=== PATIENT | female | born 1990 | race African-American/Black ===

== ENCOUNTER 2016-06-24 05:10 | Emergency (ER) | payer BC ==
[~2016-06-24] VITALS: Ht 160 cm; Wt 48.0 kg
[~2016-06-24 05:10] MED LIST: LEXA5SOL PO; PROP10TA6 PO; RANI150T PO; VIST25CA PO
[2016-06-24 05:15] VITALS: BP 117/83; PULSE 88; RESP 18; TEMP 98; O2SAT 99
--- NOTE | 2016-06-24 05:40 | PD ---
HPI Chief Complaint: Anxiety Time Seen by Provider: 05:30 Travel History International Travel<30 days: No Contact w/Intl Traveler<30days: No Traveled to known affect area: No History of Present Illness HPI 25-year-old female with history of anxiety presents via EMS for evaluation of a panic attack. She woke up feeling anxious and called EMS. Upon my examination she feels much better and like to leave. She denies any drug or alcohol use. Denies any suicidal or homicidal ideation. She has no complaints at this time. PFSH Past Medical History Asthma: Yes Anxiety: Yes Diminished Hearing: No Respiratory: Yes (ASTHMA) Immunizations Current: Yes ?: Not LMP: 06/24/16 : 0 Past Surgical History Surgical History: No Previous Surgery Oral Surgery: Yes (wisdom teeth extracted) Social History Alcohol Use: Yes (OCCAS) Tobacco Use: No Substance Use: Yes (marijuana) Allergies-Medications (Allergen,Severity, Reaction): Coded Allergies: No Known Allergies (Unverified , 06/24/16) Reported Meds & Prescriptions Reported Meds & Active Scripts Active Vistaril (Hydroxyzine Pamoate) 25 Mg Cap 25 Mg PO Q8H PRN FOR ITCHING Ranitidine 150 mg (Ranitidine HCl) 150 Mg Tab 1 Tab PO BID Propranolol (Propranolol HCl) 10 Mg Tab 10 Mg PO TID Reported Lexapro (Escitalopram Oxalate) 5 Mg/5 Ml Leigha 10 Mg PO DAILY Review of Systems Except as stated in HPI: all other systems reviewed are Neg Physical Exam Narrative GENERAL: Well-developed well-nourished female in no acute distress SKIN: Warm and dry. HEAD: Atraumatic. Normocephalic. EYES: Pupils equal and round. No scleral icterus. No injection or drainage. ENT: No nasal bleeding or discharge. Mucous membranes pink and moist. NECK: Trachea midline. No JVD. CARDIOVASCULAR: Regular rate and rhythm. No murmur appreciated. RESPIRATORY: No accessory muscle use. Clear to auscultation. Breath sounds equal bilaterally. NEUROLOGICAL: Awake and alert. No obvious cranial nerve deficits. Motor grossly within normal limits. Normal speech. PSYCHIATRIC: Appropriate mood and affect; insight and judgment normal. Data Data Last Documented VS Vital Signs Date Time Temp Pulse Resp B/P Pulse Ox O2 Delivery O2 Flow Rate FiO2 06/24/16 05:15 98.0 88 18 117/83 99 Orders Hydroxyzine Pamoate (Vistaril) (06/24/16 05:45) MDM Medical Decision Making Medical Screen Exam Complete: Yes Emergency Medical Condition: Yes Medical Record Reviewed: Yes Differential Diagnosis Anxiety attack, generalized anxiety disorder, substance induced disorder Narrative Course This is a 25 old female with history of anxiety who had an anxiety attack prior to arrival. Upon my examination her symptoms have resolved. She'll be given a small dose of Vistaril to help her sleep throughout the remainder of the morning. She is stable for discharge. Diagnosis Primary Impression: Anxiety Additional Instructions: Follow-up with primary care physician as needed. Return for any emergent medical conditions. Med/Other Pt SpecificInfo: No Change to Meds Disposition: 01 DISCHARGE HOME Condition: Stable Baldo Dolan Jun 24, 2016 05:40
[2016-06-24] MEDS ORDERED: hydrOXYzine PAMOATE 25 MG CAP PO ONE (05:45)
== END 2016-06-24 06:48 | disposition home or self-care (01) ==
LOC: NEPB 05:10
DX: F41.9 Anxiety disorder, unspecified (principal); Z87.09 Personal history of other diseases of the respiratory system
CPT/HCPCS: 99283; Q0177

== ENCOUNTER 2016-11-14 14:38 | Emergency (ER) | payer BC ==
[~2016-11-14] VITALS: Ht 160 cm; Wt 47.0 kg
[2016-11-14 14:43] VITALS: BP 118/64; PULSE 111; RESP 21; TEMP 98.1; O2SAT 99
--- NOTE | 2016-11-14 14:48 | PD ---
Physical Exam Date Seen by Provider: November 14, 2016 Time Seen by Provider: 14:47 Narrative 26 yo female here for evaluation of anxiety. Feeling very anxious and depressed. hopeless. Being feeling like this for a couple of days. Takes no meds. No plan. No chest pain. No SOB. Vitals sign stable. Patient awaiting bed placement. Data Data Last Documented VS Vital Signs Date Time Temp Pulse Resp B/P Pulse Ox O2 Delivery O2 Flow Rate FiO2 11/14/16 14:43 98.1 111 21 118/64 99 MDM Medical Record Reviewed: Yes Supervised Visit with ERNESTO: Michael Knight November 14, 2016 14:48
--- NOTE | 2016-11-14 15:41 | PD ---
HPI Chief Complaint: Anxiety Time Seen by Provider: 15:30 Travel History International Travel<30 days: No Contact w/Intl Traveler<30days: No Traveled to known affect area: No History of Present Illness HPI 26-year-old female with history of anxiety and depression here with complaint of same. Patient states that for the last several months she's been doing worse. She was taking Lexapro previously prescribed by her primary, but this was not working and so that was discontinued. The last several days she feels hopeless, and "wants to end it all". She has not however had any specific suicidal plan though passive ideation. She is not currently on anything for depression or anxiety, states that everything she's taken in the past has not been helpful. Denies any medical complaint. PFSH Past Medical History Asthma: Yes Anxiety: Yes Diminished Hearing: No Respiratory: Yes (Asthma) Immunizations Current: Yes ?: Unknown LMP: 11/02/16 : 0 Past Surgical History Oral Surgery: Yes (wisdom teeth extracted) Social History Alcohol Use: Yes (OCCAS) Tobacco Use: No Substance Use: Yes (marijuana) Allergies-Medications (Allergen,Severity, Reaction): Coded Allergies: No Known Allergies (Unverified , 06/24/16) Reported Meds & Prescriptions Reported Meds & Active Scripts Active No Active Prescriptions or Reported Medications Review of Systems Except as stated in HPI: all other systems reviewed are Neg Physical Exam Narrative GENERAL: Well-appearing female in no acute distress SKIN: Focused skin assessment warm/dry. HEAD: Normocephalic. EYES: No scleral icterus. No injection or drainage. ENT: Mucous membranes pink and moist. NECK: Supple CARDIOVASCULAR: Regular rate and rhythm. RESPIRATORY: No accessory muscle use. GASTROINTESTINAL: Abdomen soft, non-tender, nondistended. MUSCULOSKELETAL: Normal gait NEUROLOGICAL: Awake and alert. Normal speech. PSYCHIATRIC: Tearful, depressed mood and affect with poor insight and judgment. Denies delusions, hallucinations, homicidal ideation. Passive suicidal ideation but no plan. Data Data Last Documented VS Vital Signs Date Time Temp Pulse Resp B/P Pulse Ox O2 Delivery O2 Flow Rate FiO2 11/14/16 14:43 98.1 111 21 118/64 99 Orders Complete Blood Count With Diff (11/14/16 15:25) Comprehensive Metabolic Panel (11/14/16 15:25) Psych Screen (11/14/16 15:25) Drug Screen, Random Urine (11/14/16 15:25) Ed Urine Pregnancytest Poc (11/14/16 15:38) Labs Laboratory Tests Test 11/14/16 16:07 White Blood Count 6.6 TH/MM3 Red Blood Count 4.57 MIL/MM3 Hemoglobin 14.3 GM/DL Hematocrit 42.8 % Mean Corpuscular Volume 93.6 FL Mean Corpuscular Hemoglobin 31.3 PG Mean Corpuscular Hemoglobin 33.4 % Concent Red Cell Distribution Width 12.9 % Platelet Count 292 TH/MM3 Mean Platelet Volume 9.4 FL Neutrophils (%) (Auto) 59.0 % Lymphocytes (%) (Auto) 27.6 % Monocytes (%) (Auto) 9.9 % Eosinophils (%) (Auto) 3.1 % Basophils (%) (Auto) 0.4 % Neutrophils # (Auto) 3.9 TH/MM3 Lymphocytes # (Auto) 1.8 TH/MM3 Monocytes # (Auto) 0.7 TH/MM3 Eosinophils # (Auto) 0.2 TH/MM3 Basophils # (Auto) 0.0 TH/MM3 CBC Comment DIFF FINAL Differential Comment Sodium Level 139 MEQ/L Potassium Level 3.6 MEQ/L Chloride Level 102 MEQ/L Carbon Dioxide Level 26.6 MEQ/L Anion Gap 10 MEQ/L Blood Urea Nitrogen 8 MG/DL Creatinine 0.93 MG/DL Estimat Glomerular Filtration 89 ML/MIN Rate Random Glucose 81 MG/DL Calcium Level 9.3 MG/DL Total Bilirubin 0.8 MG/DL Aspartate Amino Transf 26 U/L (AST/SGOT) Alanine Aminotransferase 19 U/L (ALT/SGPT) Alkaline Phosphatase 96 U/L Total Protein 8.8 GM/DL Albumin 4.4 GM/DL Urine Opiates Screen NEG Urine Barbiturates Screen NEG Urine Amphetamines Screen NEG Urine Benzodiazepines Screen NEG Urine Cocaine Screen NEG Urine Cannabinoids Screen POS MDM Medical Decision Making Medical Screen Exam Complete: Yes Emergency Medical Condition: Yes Medical Record Reviewed: Yes Differential Diagnosis 26-year-old female with history of anxiety and depression here with complaint of same with passive suicidal ideation 2 days. Differential includes major depressive disorder, anxiety, adjustment reaction, substance induced mood disorder. Narrative Course CBC, CMP, urine test, urine drug screen were obtained and notable for positive cannabinoids. Patient cleared for psychiatric evaluation. Diagnosis Primary Impression: Suicidal ideation Additional Impressions: Depression Qualified Code: F32.9 - Depression, unspecified depression type Anxiety Scripts No Active Prescriptions or Reported Meds Rachelle Temple MD November 14, 2016 15:41
[2016-11-14 16:16] LABS: AUTOMATED NEUTROPHIL # 3.9 TH/MM3 (1.8-7.7); BASOPHIL % 0.4 % (0.0-2.0); EOSINOPHIL # 0.2 TH/MM3 (0-0.4); EOSINOPHIL % 3.1 % (0.0-4.0); HEMATOCRIT 42.8 % (35.0-46.0); HEMO FLAGS DIFF FINAL; LYMPH % 27.6 % (9.0-44.0); LYMPHOCYTE # 1.8 TH/MM3 (1.0-4.8); MEAN CELL VOLUME 93.6 FL (80.0-100.0); MEAN CORPUSCULAR HEMOGLOBIN 31.3 PG (27.0-34.0); MEAN CORPUSCULAR HGB CONC 33.4 % (32.0-36.0); MONO % 9.9 % (0.0-8.0); PLATELET COUNT 292 TH/MM3 (150-450); RED BLOOD COUNT 4.57 MIL/MM3 (4.00-5.30); RED CELL DISTRIBUTION WIDTH 12.9 % (11.6-17.2); WHITE BLOOD COUNT 6.6 TH/MM3 (4.0-11.0)
[2016-11-14 16:23] LABS: AMPHETAMINE, URINE NEG (NEG); BARBITURATES, URINE NEG (NEG); COCAINE, URINE NEG (NEG)
[2016-11-14 16:35] LABS: ALT (GPT) 19 U/L (10-53); ANION GAP 10 MEQ/L (5-15); AST (GOT) 26 U/L (15-37); BICARBONATE 26.6 MEQ/L (21.0-32.0); BLOOD UREA NITROGEN 8 MG/DL (7-18); CHLORIDE 102 MEQ/L (98-107); GLOMERULAR FILTRATION RATE 89 ML/MIN (>89); POTASSIUM 3.6 MEQ/L (3.5-5.1); SODIUM (NA) 139 MEQ/L (136-145)
[2016-11-14 16:37] LABS: ALKALINE PHOSPHATASE 96 U/L (45-117); TOTAL BILIRUBIN ADULT 0.8 MG/DL (0.2-1.0)
[2016-11-14 19:50] VITALS: BP 139/81; PULSE 78; RESP 16; O2SAT 99
== END 2016-11-15 00:08 | disposition home or self-care (01) ==
LOC: NEPD 14:38
DX: R45.851 Suicidal ideations (principal); F41.9 Anxiety disorder, unspecified; F32.9 Major depressive disorder, single episode, unspecified
CPT/HCPCS: 80053; 80307; 84703; 85025; 99284

== ENCOUNTER 2016-12-24 19:11 | Emergency (ER) | payer BC ==
[~2016-12-24] VITALS: Ht 167.6 cm; Wt 47.0 kg
[2016-12-24 20:04] VITALS: BP 155/79; PULSE 115; RESP 16; TEMP 97.7; O2SAT 100
== END 2016-12-24 21:55 | disposition left against medical advice (07) ==
LOC: NED 19:11
DX: M54.2 Cervicalgia (principal); Z53.21 Procedure and treatment not carried out due to patient leaving prior to being seen by health care provider
CPT/HCPCS: 99281

== ENCOUNTER 2017-05-02 17:30 | Emergency (ER) | payer BC ==
[~2017-05-02] VITALS: Ht 160 cm; Wt 51.0 kg
[2017-05-02 17:36] VITALS: BP 153/87; PULSE 100; RESP 18; TEMP 97.6; O2SAT 100
[2017-05-02] MEDS ORDERED: MUPI2%T TOPICAL (18:37)
[2017-05-02] MEDS ORDERED: BACT800T5 PO (18:37)
--- NOTE | 2017-05-02 18:41 | PD ---
HPI . Impetigo Chief Complaint: Skin Problem Time Seen by Provider: 18:09 Travel History International Travel<30 days: No Contact w/Intl Traveler<30days: No Traveled to known affect area: No History of Present Illness HPI 26-year-old female presents emergency department for evaluation of itchy skin rash 2 weeks. The rash is primarily on her left hand palmar aspect. The rash is multiple small circular bullous lesions. Patient states that the rash has been on various parts of her body that has resolved but is persistent on the left hand. Patient denies any pain, fevers, chills, malaise. Patient denies any abdominal pain, nausea, vomiting. PFSH Past Medical History Asthma: Yes Anxiety: Yes Diminished Hearing: No Respiratory: Yes (Asthma) Immunizations Current: Yes ?: Unknown LMP: 04/17/17 : 0 Past Surgical History Oral Surgery: Yes (wisdom teeth extracted) Social History Alcohol Use: Yes (OCC) Tobacco Use: No Substance Use: Yes (marijuana) Allergies-Medications (Allergen,Severity, Reaction): Coded Allergies: No Known Allergies (Unverified Adverse Reaction, Unknown, 05/02/17) Reported Meds & Prescriptions Reported Meds & Active Scripts Active No Active Prescriptions or Reported Medications Review of Systems Except as stated in HPI: all other systems reviewed are Neg Skin: Positive Rash, Positive Itching Physical Exam Exam Limitations: Poor Historian Narrative GENERAL: Well-nourished, well-developed 26-year-old female patient in no acute distress. Nontoxic appearing. SKIN: Patient has several small circular bullous lesions on the palmar aspect of the left hand. HEAD: Normocephalic. Atraumatic. EYES: No scleral icterus. No injection or drainage. NECK: Supple, trachea midline. No JVD or lymphadenopathy. CARDIOVASCULAR: Regular rate and rhythm without murmurs, gallops, or rubs. RESPIRATORY: Breath sounds equal bilaterally. No accessory muscle use. GASTROINTESTINAL: Abdomen soft, non-tender, nondistended. MUSCULOSKELETAL: No cyanosis, or edema. BACK: Nontender without obvious deformity. No CVA tenderness. Data Data Last Documented VS Vital Signs Date Time Temp Pulse Resp B/P (MAP) Pulse Ox O2 Delivery O2 Flow Rate FiO2 05/02/17 17:36 97.6 100 18 153/87 (109) 100 MDM Medical Decision Making Medical Screen Exam Complete: Yes Emergency Medical Condition: Yes Differential Diagnosis Differential diagnoses include but not limited to cellulitis, dermatitis, impetigo Narrative Course 26-year-old female presents emergency department for evaluation of itchy skin rash to the left palmar aspect. Patient states that the rash has been on various parts of her body that has resolved spontaneously. Patient states the rash is persistent on the left palmar aspect. The rash is several small circular bullous type lesions. There is no drainage from the lesions noted. The physical exam is consistent with bullous impetigo. Patient will be treated with Bactrim and Mupirocin and discharged home with instructions to keep the area clean and dry. Use Benadryl to help alleviate the itching. Return to emergency Department with any worsening condition or secondary skin infection. Patient discharged home. Diagnosis Primary Impression: Bullous impetigo Referrals: Primary Care Physician Patient Instructions: General Instructions, Impetigo (ED) Additional Instructions: Please return to emergency department if your symptoms return or worsen. Follow up with your primary care provider. Take medications as prescribed.. Bactrim is free of [employer]. Frequent handwashing. Keep wounds clean and dry. May use Benadryl at night to reduce the itching. Cool compresses can help reduce itching Med/Other Pt SpecificInfo: Prescription(s) given Scripts Mupirocin Topical (Bactroban Topical) 22 Gm Cream 1 APPLIC TOPICAL BID for Mgmt Bacterial Infection, #1 TUBE 0 Refills Prov: Loree Bateman 05/02/17 Sulfamethoxazole-Trimethoprim (Bactrim DS) 800-160 Mg Tab 1 TAB PO BID for Infection for 10 Days, #20 TAB 0 Refills Prov: Loree Bateman 05/02/17 Disposition: DISCHARGE HOME Condition: Stable Loree Bateman May 02, 2017 18:41
== END 2017-05-02 18:48 | disposition home or self-care (01) ==
LOC: PHEFT 17:30
DX: L01.03 Bullous impetigo (principal)
CPT/HCPCS: 99283

== ENCOUNTER 2017-08-20 11:22 | Emergency (ER) | payer BC ==
[~2017-08-20 11:22] MED LIST changes: +BACT800T5 PO; -LEXA5SOL PO; +MUPI2%T TOPICAL; -PROP10TA6 PO; -RANI150T PO; -VIST25CA PO
[2017-08-20 12:05] VITALS: BP 184/98; PULSE 113; RESP 20; TEMP 98.2; O2SAT 97
[2017-08-20] MEDS ORDERED: SODIUM CHLOR 0.9% 1000 ML INJ 1,000 ML IV SCH (12:31)
--- NOTE | 2017-08-20 12:35 | PD ---
HPI Chief Complaint: GI Complaint Time Seen by Provider: 12:17 Travel History International Travel<30 days: No Contact w/Intl Traveler<30days: No Traveled to known affect area: No History of Present Illness HPI The patient is a 26-year-old female who presents to the emergency department for abdominal pain. The patient states she had someone to drink last night, however, not enough wind to be hung over. The patient states she awakened this morning with a posterior headache, nausea, mild epigastric discomfort, and one episode of diarrhea. She denies any fever, chills, sweats, myalgias, or arthralgias. She has been drinking water, states she has clear urine, however, still feels dehydrated. She denies any history of pancreatitis. Last menstrual cycle was one month ago, notes possibility of . Symptoms are mild to moderate, no alleviating factors, possibly exacerbated by alcohol intake last night. PFSH Past Medical History Asthma: Yes Anxiety: Yes Diminished Hearing: No Respiratory: Yes (Asthma) Immunizations Current: Yes ?: Unknown LMP: 07/23/2017 : 0 Past Surgical History Oral Surgery: Yes (wisdom teeth extracted) Social History Alcohol Use: Yes (OCC) Tobacco Use: No Substance Use: Yes (marijuana) Allergies-Medications (Allergen,Severity, Reaction): Coded Allergies: No Known Allergies (Unverified Adverse Reaction, Unknown, 05/02/17) Reported Meds & Prescriptions Reported Meds & Active Scripts Active Bactroban Topical (Mupirocin) 22 Gm Cream 1 Applic TOPICAL BID Bactrim DS (Sulfamethoxazole-Trimethoprim) 800-160 Mg Tab 1 Tab PO BID 10 Days Review of Systems Except as stated in HPI: all other systems reviewed are Neg General / Constitutional: No: Fever HENT: Positive: Headaches Cardiovascular: No: Chest Pain or Discomfort Respiratory: No: Shortness of Breath Gastrointestinal: Positive: Nausea, Diarrhea, Abdominal Pain, No: Vomiting Genitourinary: No: Dysuria Musculoskeletal: No: Myalgias, Arthralgias Physical Exam Narrative GENERAL: Awake, alert, pleasant 26-year-old female who appears her stated age and is in no acute respiratory distress. SKIN: Focused skin assessment warm/dry. HEAD: Atraumatic. Normocephalic. EYES: Pupils equal and round. No scleral icterus. No injection or drainage. ENT: No nasal bleeding or discharge. Mucous membranes pink and moist. NECK: Trachea midline. No JVD. No meningeal signs. CARDIOVASCULAR: Regular rate and rhythm. No murmur appreciated. RESPIRATORY: No accessory muscle use. Clear to auscultation. Breath sounds equal bilaterally. GASTROINTESTINAL: Abdomen soft, minimal epigastric tenderness. No guarding or rigidity. MUSCULOSKELETAL: No obvious deformities. No clubbing. No cyanosis. No edema. NEUROLOGICAL: Awake and alert. No obvious cranial nerve deficits. Motor grossly within normal limits. Normal speech. PSYCHIATRIC: Appropriate mood and affect; insight and judgment normal. Data Data Last Documented VS Vital Signs Date Time Temp Pulse Resp B/P (MAP) Pulse Ox O2 Delivery O2 Flow Rate FiO2 08/20/17 12:05 98.2 113 20 184/98 (126) 97 Orders Orders Complete Blood Count With Diff (08/20/17 12:31) Comprehensive Metabolic Panel (08/20/17 12:31) Lipase (08/20/17 12:31) Urinalysis - C+S If Indicated (08/20/17 12:31) Iv Access Insert/Monitor (08/20/17 12:31) Ecg Monitoring (08/20/17 12:31) Oximetry (08/20/17 12:31) Morphine Inj (Morphine Inj) (08/20/17 12:45) Ondansetron Inj (Zofran Inj) (08/20/17 12:45) Sodium Chlor 0.9% 1000 Ml Inj (Ns 1000 M (08/20/17 12:31) Sodium Chloride 0.9% Flush (Ns Flush) (08/20/17 12:45) Famotidine Inj (Pepcid Inj) (08/20/17 12:45) Ed Urine Pregnancytest Poc (08/20/17 12:31) Lorazepam Inj (Ativan Inj) (08/20/17 14:00) Labs Laboratory Tests Test 08/20/17 13:06 White Blood Count 7.1 TH/MM3 Red Blood Count 4.54 MIL/MM3 Hemoglobin 14.6 GM/DL Hematocrit 41.8 % Mean Corpuscular Volume 92.0 FL Mean Corpuscular Hemoglobin 32.3 PG Mean Corpuscular Hemoglobin Concent 35.1 % Red Cell Distribution Width 12.9 % Platelet Count 312 TH/MM3 Mean Platelet Volume 8.5 FL Neutrophils (%) (Auto) 70.7 % Lymphocytes (%) (Auto) 16.9 % Monocytes (%) (Auto) 11.0 % Eosinophils (%) (Auto) 1.2 % Basophils (%) (Auto) 0.2 % Neutrophils # (Auto) 5.0 TH/MM3 Lymphocytes # (Auto) 1.2 TH/MM3 Monocytes # (Auto) 0.8 TH/MM3 Eosinophils # (Auto) 0.1 TH/MM3 Basophils # (Auto) 0.0 TH/MM3 CBC Comment DIFF FINAL Differential Comment Urine Color LIGHT-YELLOW Urine Turbidity CLEAR Urine pH 8.5 Urine Specific Ceres 1.003 Urine Protein NEG mg/dL Urine Glucose (UA) NEG mg/dL Urine Ketones NEG mg/dL Urine Occult Blood NEG Urine Nitrite NEG Urine Bilirubin NEG Urine Urobilinogen LESS THAN 2.0 MG/DL Urine Leukocyte Esterase NEG Urine RBC LESS THAN 1 /hpf Urine WBC LESS THAN 1 /hpf Urine Squamous Epithelial Cells 1 /hpf Microscopic Urinalysis Comment CULT NOT INDICATED Blood Urea Nitrogen 9 MG/DL Creatinine 0.82 MG/DL Random Glucose 101 MG/DL Total Protein 8.8 GM/DL Albumin 4.3 GM/DL Calcium Level 9.2 MG/DL Alkaline Phosphatase 105 U/L Aspartate Amino Transf (AST/SGOT) 25 U/L Alanine Aminotransferase (ALT/SGPT) 15 U/L Total Bilirubin 0.5 MG/DL Sodium Level 136 MEQ/L Potassium Level 3.6 MEQ/L Chloride Level 102 MEQ/L Carbon Dioxide Level 24.9 MEQ/L Anion Gap 9 MEQ/L Estimat Glomerular Filtration Rate 103 ML/MIN Lipase 138 U/L MDM Medical Decision Making Medical Screen Exam Complete: Yes Emergency Medical Condition: Yes Medical Record Reviewed: Yes Interpretation(s) Laboratory Tests Test 08/20/17 13:06 White Blood Count 7.1 TH/MM3 Red Blood Count 4.54 MIL/MM3 Hemoglobin 14.6 GM/DL Hematocrit 41.8 % Mean Corpuscular Volume 92.0 FL Mean Corpuscular Hemoglobin 32.3 PG Mean Corpuscular Hemoglobin Concent 35.1 % Red Cell Distribution Width 12.9 % Platelet Count 312 TH/MM3 Mean Platelet Volume 8.5 FL Neutrophils (%) (Auto) 70.7 % Lymphocytes (%) (Auto) 16.9 % Monocytes (%) (Auto) 11.0 % Eosinophils (%) (Auto) 1.2 % Basophils (%) (Auto) 0.2 % Neutrophils # (Auto) 5.0 TH/MM3 Lymphocytes # (Auto) 1.2 TH/MM3 Monocytes # (Auto) 0.8 TH/MM3 Eosinophils # (Auto) 0.1 TH/MM3 Basophils # (Auto) 0.0 TH/MM3 CBC Comment DIFF FINAL Differential Comment Urine Color LIGHT-YELLOW Urine Turbidity CLEAR Urine pH 8.5 Urine Specific [place] 1.003 Urine Protein NEG mg/dL Urine Glucose (UA) NEG mg/dL Urine Ketones NEG mg/dL Urine Occult Blood NEG Urine Nitrite NEG Urine Bilirubin NEG Urine Urobilinogen LESS THAN 2.0 MG/DL Urine Leukocyte Esterase NEG Urine RBC LESS THAN 1 /hpf Urine WBC LESS THAN 1 /hpf Urine Squamous Epithelial Cells 1 /hpf Microscopic Urinalysis Comment CULT NOT INDICATED Blood Urea Nitrogen 9 MG/DL Creatinine 0.82 MG/DL Random Glucose 101 MG/DL Total Protein 8.8 GM/DL Albumin 4.3 GM/DL Calcium Level 9.2 MG/DL Alkaline Phosphatase 105 U/L Aspartate Amino Transf (AST/SGOT) 25 U/L Alanine Aminotransferase (ALT/SGPT) 15 U/L Total Bilirubin 0.5 MG/DL Sodium Level 136 MEQ/L Potassium Level 3.6 MEQ/L Chloride Level 102 MEQ/L Carbon Dioxide Level 24.9 MEQ/L Anion Gap 9 MEQ/L Estimat Glomerular Filtration Rate 103 ML/MIN Lipase 138 U/L Differential Diagnosis Differential diagnosis includes alcoholic gastritis, pancreatitis, gastritis, viral syndrome, gastroenteritis, cephalgia, viral syndrome, electrolyte abnormality, dehydration. Narrative Course IV was established, labs are drawn and sent, and the patient was placed on cardiac telemetry monitoring and continuous pulse oximetry monitoring. The patient was administered Zofran, morphine, and was placed on IV fluids. Bedside UA test was obtained and UA was sent to lab. Bedside UA test is negative. UA is unremarkable. CBC unremarkable except for elevated neutrophils of monocytes. LFTs and lipase are unremarkable. The patient then had an anxiety attack, has a history of anxiety. She was administered Ativan 0.5 mg intravenously. The patient is stable, she will be discharged home and is advised to follow-up with a primary physician. Diagnosis Primary Impression: Cephalgia Qualified Codes: R51 - Headache Additional Impressions: Nausea & vomiting Qualified Codes: R11.2 - Nausea with vomiting, unspecified Anxiety Patient Instructions: General Instructions Additional Instructions: Medications as directed. Please provide the patient a copy of her labs at discharge. Follow-up with your primary physician. Return if symptoms worsen or progress. Med/Other Pt SpecificInfo: Prescription(s) given Scripts Ondansetron Odt (Zofran Odt) 4 Mg Tab 4 MG SL Q6HR Y for Nausea/Vomiting, #7 TAB 0 Refills Prov: Gorge Hutchins MD 08/20/17 Disposition: 01 DISCHARGE HOME Condition: Stable Gorge Hutchins MD Aug 20, 2017 12:35
[2017-08-20] MEDS ORDERED: FAMOTIDINE 20 MG/2 ML VIAL IV PUSH ONE (12:45)
[2017-08-20] MEDS ORDERED: SODIUM CHLORIDE 0.9% FLUSH 10 ML FLUSH IV FLUSH PRN (12:45)
[2017-08-20] MEDS ORDERED: MORPHINE SULFATE 4 MG/ML INJ IV PUSH ONE (12:45)
[2017-08-20] MEDS ORDERED: ONDANSETRON HCL 4 MG/2 ML VIAL IVP ONE (12:45)
[2017-08-20 13:27] LABS: BASOPHIL % 0.2 % (0.0-2.0); EOSINOPHIL # 0.1 TH/MM3 (0-0.4); EOSINOPHIL % 1.2 % (0.0-4.0); HEMATOCRIT 41.8 % (35.0-46.0); HEMOGLOBIN 14.6 GM/DL (11.6-15.3); LYMPH % 16.9 % (9.0-44.0); LYMPHOCYTE # 1.2 TH/MM3 (1.0-4.8); MEAN CORPUSCULAR HEMOGLOBIN 32.3 PG (27.0-34.0); MEAN CORPUSCULAR HGB CONC 35.1 % (32.0-36.0); MEAN PLATELET VOLUME 8.5 FL (7.0-11.0); MONOCYTE # 0.8 TH/MM3 (0-0.9); NEUT % 70.7 % (16.0-70.0); PLATELET COUNT 312 TH/MM3 (150-450); RED BLOOD COUNT 4.54 MIL/MM3 (4.00-5.30); RED CELL DISTRIBUTION WIDTH 12.9 % (11.6-17.2); WHITE BLOOD COUNT 7.1 TH/MM3 (4.0-11.0)
[2017-08-20 13:28] LABS: BILIRUBIN, URINE NEG (NEG); BLOOD, URINE NEG (NEG); GLUCOSE,URINE NEG (NEG); KETONE, URINE NEG (NEG); NITRITE,URINE NEG (NEG); PH, URINE 8.5 (5.0-8.5); SQUAMOUS EPITHELIAL CELL URINE 1 /hpf (0-5); URINE COLOR LIGHT-YELLOW (YELLW/STRAW); URINE LEUKOCYTE ESTERASE NEG (NEG)
[2017-08-20 13:45] LABS: ALBUMIN 4.3 GM/DL (3.4-5.0); AST (GOT) 25 U/L (15-37); BICARBONATE 24.9 MEQ/L (21.0-32.0); BLOOD UREA NITROGEN 9 MG/DL (7-18); CALCIUM 9.2 MG/DL (8.5-10.1); CHLORIDE 102 MEQ/L (98-107); CREATININE 0.82 MG/DL (0.50-1.00); GLOMERULAR FILTRATION RATE 103 ML/MIN (>89); GLUCOSE,RANDOM 101 MG/DL (74-106); SODIUM (NA) 136 MEQ/L (136-145)
[2017-08-20 13:46] LABS: ALT (GPT) 15 U/L (10-53)
[2017-08-20 13:48] LABS: ALKALINE PHOSPHATASE 105 U/L (45-117); TOTAL BILIRUBIN ADULT 0.5 MG/DL (0.2-1.0); TOTAL PROTEIN 8.8 GM/DL (6.4-8.2)
[2017-08-20] MEDS ORDERED: ZOFR4TAB3 SL (13:52)
[2017-08-20] MEDS ORDERED: LORazepam 2 MG/ML VIAL IV PUSH ONE (14:00)
[2017-08-20] MEDS ORDERED: KETOROLAC TROMETHAMINE 30 MG/ML (IVP) VIAL IV PUSH ONE (14:00)
[2017-08-20 14:50] VITALS: BP 140/79
== END 2017-08-20 15:12 | disposition home or self-care (01) ==
LOC: NEPD 11:22
DX: R51 Headache (principal); R11.2 Nausea with vomiting, unspecified; F41.9 Anxiety disorder, unspecified; J45.909 Unspecified asthma, uncomplicated; Z79.899 Other long term (current) drug therapy
CPT/HCPCS: 80053; 81001; 83690; 84703; 85025; 96374; 96375; 99284; J1885; J2060; J2270; J2405; J7030

== ENCOUNTER 2017-09-04 22:36 | Emergency (ER) | payer BC ==
[~2017-09-04] VITALS: Ht 160 cm; Wt 50.0 kg
[~2017-09-04 22:36] MED LIST changes: +ZOFR4TAB3 SL
[2017-09-04 23:24] VITALS: BP 136/93; PULSE 138; RESP 18; TEMP 102; O2SAT 100
== END 2017-09-05 02:17 | disposition left against medical advice (07) ==
LOC: NED 22:36
DX: R50.9 Fever, unspecified (principal)
CPT/HCPCS: 99281

== ENCOUNTER 2017-09-05 01:02 | Emergency (ER) | payer BC ==
[~2017-09-05] VITALS: Ht 160 cm; Wt 53.3 kg
[2017-09-05 01:13] VITALS: BP 133/85; PULSE 125; RESP 18; TEMP 99.9; O2SAT 100
[2017-09-05 01:23] VITALS: PULSE 121; RESP 18; O2SAT 99
[2017-09-05 02:13] VITALS: PULSE 116; O2SAT 97
--- NOTE | 2017-09-05 02:49 | PD ---
HPI Chief Complaint: Cold / Flu Symptoms Time Seen by Provider: 02:48 Travel History International Travel<30 days: No Contact w/Intl Traveler<30days: No Traveled to known affect area: No History of Present Illness HPI 26-year-old female came to the emergency room with history of fever, chills, slight cough, body aches since 8:00 AM yesterday. Patient said that she took some TheraFlu yesterday morning but has not taken any other medication since then. Vital signs in triage was suggestive of mild temperature elevation with tachycardia. Patient denies of any vomiting or diarrhea. Bedside urine test was negative. She is otherwise a healthy person. She has been in contact with some sick people at work. [facility] Past Medical History Narrative Medical List of her past medical, surgical, social and family history reviewed from the nursing note. Asthma: Yes Anxiety: Yes Diminished Hearing: No Respiratory: Yes (Asthma) Immunizations Current: Yes ?: Unknown LMP: 07/23/17 : 0 Past Surgical History Oral Surgery: Yes (wisdom teeth extracted) Social History Alcohol Use: Yes ("A COUPLE OF TIMES A WEEK" STATED 09/05/17) Tobacco Use: No (QUIT JUN 2017) Substance Use: No (marijuana: QUIT 2017) Allergies-Medications (Allergen,Severity, Reaction): Coded Allergies: No Known Allergies (Unverified Adverse Reaction, Unknown, 09/05/17) Comments No known drug allergies. Reported Meds & Prescriptions Reported Meds & Active Scripts Active No Active Prescriptions or Reported Medications Narrative Medication List of her home medications reviewed from the nursing note. Review of Systems Except as stated in HPI: all other systems reviewed are Neg General / Constitutional: Positive: Fever, Chills Respiratory: Positive: Cough Gastrointestinal: Positive: Nausea Musculoskeletal: Positive: Myalgias Physical Exam Narrative GENERAL: Awake, alert, moderate to SKIN: Focused skin assessment warm/dry. HEAD: Atraumatic. Normocephalic. EYES: Pupils equal and round. No scleral icterus. No injection or drainage. ENT: No nasal bleeding or discharge. Mucous membranes pink and moist. No erythema or exudate of the pharynx NECK: Trachea midline. No JVD. CARDIOVASCULAR: Regular rate and rhythm. No murmur appreciated. RESPIRATORY: No accessory muscle use. Clear to auscultation. Breath sounds equal bilaterally. GASTROINTESTINAL: Abdomen soft, non-tender, nondistended. Hepatic and splenic margins not palpable. MUSCULOSKELETAL: No obvious deformities. No clubbing. No cyanosis. No edema. NEUROLOGICAL: Awake and alert. No obvious cranial nerve deficits. Motor grossly within normal limits. Normal speech. PSYCHIATRIC: Appropriate mood and affect; insight and judgment normal. Data Data Last Documented VS Orders Orders Sepsis Workup Initiated (09/05/17 ) Complete Blood Count With Diff (09/05/17 02:51) Comprehensive Metabolic Panel (09/05/17 02:51) Lactic Acid Sepsis Protocol (09/05/17 02:51) Urinalysis - C+S If Indicated (09/05/17 02:51) Influenzae A/B Antigen (09/05/17 02:51) Blood Culture (09/05/17 02:51) Chest, Single Ap (09/05/17 02:51) Blood Glucose (09/05/17 02:51) Ecg Monitoring (09/05/17 02:51) Iv Access Insert/Monitor (09/05/17 02:51) Oximetry (09/05/17 02:51) Oxygen Administration (09/05/17 02:51) Sodium Chlor 0.9% 1000 Ml Inj (Ns 1000 M (09/05/17 03:00) Acetaminophen (Tylenol) (09/05/17 03:00) Potassium Chloride (Kcl) (09/05/17 03:45) Sodium Chlor 0.9% 1000 Ml Inj (Ns 1000 M (09/05/17 04:00) Ed Discharge Order (09/05/17 04:02) Labs Laboratory Tests Test 09/05/17 03:00 White Blood Count 8.8 TH/MM3 Red Blood Count 4.16 MIL/MM3 Hemoglobin 13.0 GM/DL Hematocrit 38.2 % Mean Corpuscular Volume 91.8 FL Mean Corpuscular Hemoglobin 31.3 PG Mean Corpuscular Hemoglobin Concent 34.0 % Red Cell Distribution Width 12.3 % Platelet Count 216 TH/MM3 Mean Platelet Volume 8.9 FL Neutrophils (%) (Auto) 82.5 % Lymphocytes (%) (Auto) 4.4 % Monocytes (%) (Auto) 11.2 % Eosinophils (%) (Auto) 0.4 % Basophils (%) (Auto) 1.5 % Neutrophils # (Auto) 7.2 TH/MM3 Lymphocytes # (Auto) 0.4 TH/MM3 Monocytes # (Auto) 1.0 TH/MM3 Eosinophils # (Auto) 0.0 TH/MM3 Basophils # (Auto) 0.1 TH/MM3 CBC Comment AUTO DIFF Differential Comment AUTO DIFF CONFIRMED Platelet Estimate NORMAL Platelet Morphology Comment NORMAL Red Cell Morphology Comment NORMAL Urine Collection Type CATH Urine Color YELLOW Urine Turbidity CLEAR Urine pH 5.5 Urine Specific [place] 1.020 Urine Protein NEG mg/dL Urine Glucose (UA) NEG mg/dL Urine Ketones 80 OR GREATER mg/dL Urine Occult Blood TRACE Urine Nitrite NEG Urine Bilirubin NEG Urine Urobilinogen 0.2 MG/DL Urine Leukocyte Esterase NEG Urine WBC 0-2 /hpf Urine Squamous Epithelial Cells 0-5 /hpf Urine Amorphous Sediment SMALL Urine Mucus MOD /lpf Microscopic Urinalysis Comment CULT NOT INDICATED Blood Urea Nitrogen 7 MG/DL Creatinine 0.85 MG/DL Random Glucose 102 MG/DL Total Protein 8.0 GM/DL Albumin 3.7 GM/DL Calcium Level 8.1 MG/DL Alkaline Phosphatase 78 U/L Aspartate Amino Transf (AST/SGOT) 19 U/L Alanine Aminotransferase (ALT/SGPT) 13 U/L Total Bilirubin 0.4 MG/DL Sodium Level 132 MEQ/L Potassium Level 3.3 MEQ/L Chloride Level 101 MEQ/L Carbon Dioxide Level 23.2 MEQ/L Anion Gap 8 MEQ/L Estimat Glomerular Filtration Rate 99 ML/MIN Lactic Acid Level 0.9 mmol/L [facility] Medical Decision Making Medical Screen Exam Complete: Yes Emergency Medical Condition: Yes Medical Record Reviewed: Yes Differential Diagnosis Pneumonia, sepsis, viral illness, influenza Narrative Course 3:58 AM blood test results show some left shift on CBC and potassium of 3.3. Patient was given IV fluid bolus. Chest x-ray is negative. UA is also suggestive of large ketones. Influenza test is negative. I have ordered for second liter of IV fluid bolus and after that patient will be discharged home. Procedures EKG Prior to Arrival: No Diagnosis Primary Impression: Viral illness Additional Impression: Dehydration Referrals: Primary Care Physician Additional Instructions: Drink lots of fluid. Return to the ER if condition worsens or any other new concerns. Otherwise follow-up with her primary care. Take Tylenol/Motrin/ ibuprofen/Advil for fever. Med/Other Pt SpecificInfo: No Change to Meds Scripts No Active Prescriptions or Reported Meds Disposition: 01 DISCHARGE HOME Condition: Stable Jeanna Bansal MD Sep 05, 2017 02:49
[2017-09-05] MEDS ORDERED: SODIUM CHLOR 0.9% 1000 ML INJ 1,000 ML IV ONE ×2 (03:00→04:00)
[2017-09-05] MEDS ORDERED: ACETAMINOPHEN 325 MG TAB PO ONE (03:00)
[2017-09-05 03:14] LABS: AUTOMATED NEUTROPHIL # 7.2 TH/MM3 (1.8-7.7); BASOPHIL # 0.1 TH/MM3 (0-0.2); BASOPHIL % 1.5 % (0.0-2.0); EOSINOPHIL % 0.4 % (0.0-4.0); HEMATOCRIT 38.2 % (35.0-46.0); LYMPH % 4.4 % (9.0-44.0); LYMPHOCYTE # 0.4 TH/MM3 (1.0-4.8); MEAN CELL VOLUME 91.8 FL (80.0-100.0); MEAN CORPUSCULAR HEMOGLOBIN 31.3 PG (27.0-34.0); MEAN PLATELET VOLUME 8.9 FL (7.0-11.0); MONO % 11.2 % (0.0-8.0); NEUT % 82.5 % (16.0-70.0); PLATELET COUNT 216 TH/MM3 (150-450); RED BLOOD COUNT 4.16 MIL/MM3 (4.00-5.30); RED CELL DISTRIBUTION WIDTH 12.3 % (11.6-17.2); WHITE BLOOD COUNT 8.8 TH/MM3 (4.0-11.0)
[2017-09-05 03:20] LABS: BILIRUBIN, URINE NEG (NEG); BLOOD, URINE TRACE (NEG); GLUCOSE,URINE NEG (NEG); KETONE, URINE 80 OR GREATER mg/dL (NEG); NITRITE,URINE NEG (NEG); PH, URINE 5.5 (5.0-8.5); URINE COLOR YELLOW (YELLW/STRAW); URINE LEUKOCYTE ESTERASE NEG (NEG)
[2017-09-05 03:23] LABS: CHLORIDE 101 MEQ/L (98-107); SODIUM (NA) 132 MEQ/L (136-145)
[2017-09-05 03:25] VITALS: PULSE 114; RESP 18; TEMP 102.2; O2SAT 99
[2017-09-05 03:26] LABS: CALCIUM 8.1 MG/DL (8.5-10.1)
[2017-09-05 03:27] LABS: ALBUMIN 3.7 GM/DL (3.4-5.0); BICARBONATE 23.2 MEQ/L (21.0-32.0); BLOOD UREA NITROGEN 7 MG/DL (7-18); GLUCOSE,RANDOM 102 MG/DL (74-106)
[2017-09-05 03:30] LABS: ALT (GPT) 13 U/L (10-53); AST (GOT) 19 U/L (15-37); CREATININE 0.85 MG/DL (0.50-1.00); GLOMERULAR FILTRATION RATE 99 ML/MIN (>89)
[2017-09-05 03:31] LABS: TOTAL BILIRUBIN ADULT 0.4 MG/DL (0.2-1.0)
--- NOTE | 2017-09-05 03:32 | RADRPT ---
EXAM DATE/TIME: 09/05/2017 03:17 [place] COMPARISON: No previous studies available for comparison. INDICATIONS : Cough. MEDICAL HISTORY : None. SURGICAL HISTORY : None. ENCOUNTER: Initial ACUITY: 1 day PAIN SCORE: 0/10 LOCATION: Bilateral chest FINDINGS: A single view of the chest demonstrates the lungs to be symmetrically aerated without evidence of mas s, infiltrate or effusion. The cardiomediastinal contours are unremarkable. Osseous structures are intact. CONCLUSION: The lungs are clear. Mason Freed MD on September 05, 2017 at 3:30 Board Certified Radiologist. This report was verified electronically.
[2017-09-05 03:33] LABS: ALKALINE PHOSPHATASE 78 U/L (45-117)
[2017-09-05] MEDS ORDERED: POTASSIUM CHLORIDE 20 MEQ CONTROLLED RELEASE TAB PO ONE (03:45)
[2017-09-05 03:50] LABS: AMORPHOUS SEDIMENT, URINE SMALL; MUCUS URINE MOD /lpf (OCC); SQUAMOUS EPITHELIAL CELL URINE 0-5 /hpf (0-5); WBC, URINE 0-2 /hpf (0-5)
[2017-09-05 04:19] VITALS: PULSE 118; RESP 18; TEMP 100.3; O2SAT 97
[2017-09-05 05:38] VITALS: BP 128/72
== END 2017-09-05 05:41 | disposition home or self-care (01) ==
LOC: PHED 01:02
DX: B34.9 Viral infection, unspecified (principal); E86.0 Dehydration; J45.909 Unspecified asthma, uncomplicated; F41.9 Anxiety disorder, unspecified; Z87.891 Personal history of nicotine dependence
CPT/HCPCS: 71045; 80053; 81001; 83605; 85025; 87040; 87804; 96360; 96361; 99284; J7030

== ENCOUNTER 2017-11-12 14:12 | Emergency (ER) | payer BC ==
[~2017-11-12] VITALS: Ht 160 cm; Wt 52.0 kg
[2017-11-12 14:22] VITALS: BP 135/92; PULSE 116; RESP 18; TEMP 98.6; O2SAT 100
--- NOTE | 2017-11-12 14:25 | PD ---
HPI Chief Complaint: GI Complaint Time Seen by Provider: 14:24 Travel History International Travel<30 days: No Contact w/Intl Traveler<30days: No Traveled to known affect area: No History of Present Illness HPI 27-year-old female came to the emergency room with history of sudden onset nausea, vomiting and diarrhea that started about an hour and a half ago. Patient was at work. Patient says the air conditioning was not working and she felt overheated. This happens to her all the time when she gets overheated. She was also having tingling and numbness of both her hands and feet. Once again this happens every time she becomes like this. Patient was tachycardic in triage. She seems quite anxious. She has vomited almost 10 times since this started. She ate some [place] fries before this happened. Her friend is here with her who is giving additional history. [facility] Past Medical History Narrative Medical List of her past medical, surgical, social and family history is reviewed from the nursing note. Asthma: Yes Anxiety: Yes Diminished Hearing: No Respiratory: Yes (Asthma) Immunizations Current: Yes ?: Not LMP: 10/20/17 : 0 Past Surgical History Oral Surgery: Yes (wisdom teeth extracted) Social History Alcohol Use: Yes ("A COUPLE OF TIMES A WEEK" STATED 09/05/17) Tobacco Use: No (QUIT JUN 2017) Substance Use: No (marijuana: QUIT 2017) Allergies-Medications (Allergen,Severity, Reaction): Coded Allergies: No Known Allergies (Unverified Adverse Reaction, Unknown, 09/05/17) Comments No known drug allergies. Reported Meds & Prescriptions Reported Meds & Active Scripts Active Zofran Odt (Ondansetron Odt) 4 Mg Tab 4 Mg SL Q6HR PRN Narrative Medication List of her home medications reviewed from the nursing note Review of Systems Except as stated in HPI: all other systems reviewed are Neg Gastrointestinal: Positive: Nausea, Vomiting, Diarrhea Physical Exam Narrative GENERAL: Awake, alert, anxious, moderate distress SKIN: Focused skin assessment warm/dry. HEAD: Atraumatic. Normocephalic. EYES: Pupils equal and round. No scleral icterus. No injection or drainage. ENT: No nasal bleeding or discharge. Mucous membranes pink and moist. NECK: Trachea midline. No JVD. CARDIOVASCULAR: Regular rate and rhythm. No murmur appreciated. RESPIRATORY: No accessory muscle use. Clear to auscultation. Breath sounds equal bilaterally. GASTROINTESTINAL: Abdomen soft, non-tender, nondistended. Hepatic and splenic margins not palpable. MUSCULOSKELETAL: No obvious deformities. No clubbing. No cyanosis. No edema. NEUROLOGICAL: Awake and alert. No obvious cranial nerve deficits. Motor grossly within normal limits. Normal speech. PSYCHIATRIC: Appropriate mood and affect; insight and judgment normal. Data Data Last Documented VS Vital Signs Date Time Temp Pulse Resp B/P (MAP) Pulse Ox O2 Delivery O2 Flow Rate FiO2 11/12/17 15:08 57 18 145/93 (110) 97 11/12/17 14:22 98.6 Orders Orders Complete Blood Count With Diff (11/12/17 14:44) Comprehensive Metabolic Panel (11/12/17 14:44) Lipase (11/12/17 14:44) Ed Urine Pregnancytest Poc (11/12/17 14:44) Urinalysis - C+S If Indicated (11/12/17 14:44) Sodium Chlor 0.9% 1000 Ml Inj (Ns 1000 M (11/12/17 14:45) Ondansetron Inj (Zofran Inj) (11/12/17 14:45) Potassium Chloride Eff (K-Lyte Cl Eff) (11/12/17 15:15) Alprazolam (Xanax) (11/12/17 15:30) Ed Discharge Order (11/12/17 15:33) Labs Laboratory Tests Test 11/12/17 14:40 11/12/17 14:54 Urine Collection Type CLEAN CATCH Urine Color NONE Urine Turbidity CLEAR Urine pH 7.0 Urine Specific [place] LESS/EQUAL 1.005 Urine Protein NEG mg/dL Urine Glucose (UA) NEG mg/dL Urine Ketones NEG mg/dL Urine Occult Blood NEG Urine Nitrite NEG Urine Bilirubin NEG Urine Urobilinogen 0.2 MG/DL Urine Leukocyte Esterase NEG Urine WBC 0-2 /hpf Urine Squamous Epithelial Cells 0-3 /hpf Microscopic Urinalysis Comment CULT NOT INDICATED White Blood Count 8.3 TH/MM3 Red Blood Count 4.46 MIL/MM3 Hemoglobin 13.6 GM/DL Hematocrit 41.0 % Mean Corpuscular Volume 91.8 FL Mean Corpuscular Hemoglobin 30.6 PG Mean Corpuscular Hemoglobin Concent 33.3 % Red Cell Distribution Width 12.4 % Platelet Count 291 TH/MM3 Mean Platelet Volume 8.7 FL Neutrophils (%) (Auto) 62.9 % Lymphocytes (%) (Auto) 25.4 % Monocytes (%) (Auto) 8.1 % Eosinophils (%) (Auto) 1.7 % Basophils (%) (Auto) 1.9 % Neutrophils # (Auto) 5.2 TH/MM3 Lymphocytes # (Auto) 2.1 TH/MM3 Monocytes # (Auto) 0.7 TH/MM3 Eosinophils # (Auto) 0.1 TH/MM3 Basophils # (Auto) 0.2 TH/MM3 CBC Comment DIFF FINAL Differential Comment Blood Urea Nitrogen 12 MG/DL Creatinine 0.93 MG/DL Random Glucose 101 MG/DL Total Protein 9.2 GM/DL Albumin 4.5 GM/DL Calcium Level 9.5 MG/DL Alkaline Phosphatase 90 U/L Aspartate Amino Transf (AST/SGOT) 24 U/L Alanine Aminotransferase (ALT/SGPT) 17 U/L Total Bilirubin 0.4 MG/DL Sodium Level 138 MEQ/L Potassium Level 3.3 MEQ/L Chloride Level 104 MEQ/L Carbon Dioxide Level 21.7 MEQ/L Anion Gap 12 MEQ/L Estimat Glomerular Filtration Rate 88 ML/MIN Lipase 180 U/L [facility] Medical Decision Making Medical Screen Exam Complete: Yes Emergency Medical Condition: Yes Medical Record Reviewed: Yes Differential Diagnosis Food poisoning, acute gastroenteritis, electrolyte abnormality Narrative Course 2:54 PM awaiting for blood test result. Patient is getting IV fluid bolus and Zofran. 3:34 PM blood test results are back and within normal limit except for potassium is slightly low. In my opinion that is probably secondary to respiratory alkalosis since patient is hyperventilating. She has accepted the fact that she is going to a panic attack right now. She is not vomiting anymore. I have given her a dose of Xanax here. She has been given some potassium replacement as well. Nurse says she is breathing into the vomit back at this time. She could be discharged home once her condition comes down a little bit. Her heart rate is down to 57 bpm now. Procedures EKG Prior to Arrival: No Diagnosis Primary Impression: Vomiting Qualified Codes: R11.2 - Nausea with vomiting, unspecified Additional Impressions: Diarrhea Qualified Codes: R19.7 - Diarrhea, unspecified Panic attack Referrals: [facility] Additional Instructions: Take the medication given to you as per the prescription direction as needed for nausea. Med/Other Pt SpecificInfo: Prescription(s) given Scripts Ondansetron Odt (Zofran Odt) 4 Mg Tab 4 MG SL Q6HR Y for Nausea/Vomiting, #10 TAB 0 Refills Prov: Jeanna Bansal MD 11/12/17 Disposition: 01 DISCHARGE HOME Condition: Stable Jeanna Bansal MD November 12, 2017 14:25
[2017-11-12] MEDS ORDERED: ONDANSETRON HCL 4 MG/2 ML VIAL IV PUSH ONE (14:45)
[2017-11-12] MEDS ORDERED: SODIUM CHLOR 0.9% 1000 ML INJ 1,000 ML IV ONE (14:45)
[2017-11-12 15:02] LABS: BILIRUBIN, URINE NEG (NEG); BLOOD, URINE NEG (NEG); GLUCOSE,URINE NEG (NEG); KETONE, URINE NEG (NEG); NITRITE,URINE NEG (NEG); URINE LEUKOCYTE ESTERASE NEG (NEG)
[2017-11-12 15:02] LABS: AUTOMATED NEUTROPHIL # 5.2 TH/MM3 (1.8-7.7); BASOPHIL # 0.2 TH/MM3 (0-0.2); BASOPHIL % 1.9 % (0.0-2.0); EOSINOPHIL # 0.1 TH/MM3 (0-0.4); EOSINOPHIL % 1.7 % (0.0-4.0); HEMOGLOBIN 13.6 GM/DL (11.6-15.3); LYMPH % 25.4 % (9.0-44.0); LYMPHOCYTE # 2.1 TH/MM3 (1.0-4.8); MEAN CELL VOLUME 91.8 FL (80.0-100.0); MEAN CORPUSCULAR HEMOGLOBIN 30.6 PG (27.0-34.0); MEAN CORPUSCULAR HGB CONC 33.3 % (32.0-36.0); MEAN PLATELET VOLUME 8.7 FL (7.0-11.0); MONO % 8.1 % (0.0-8.0); MONOCYTE # 0.7 TH/MM3 (0-0.9); NEUT % 62.9 % (16.0-70.0); PLATELET COUNT 291 TH/MM3 (150-450); RED BLOOD COUNT 4.46 MIL/MM3 (4.00-5.30); RED CELL DISTRIBUTION WIDTH 12.4 % (11.6-17.2); WHITE BLOOD COUNT 8.3 TH/MM3 (4.0-11.0)
[2017-11-12 15:08] VITALS: BP 145/93; PULSE 57; RESP 18; O2SAT 97
[2017-11-12 15:08] LABS: SQUAMOUS EPITHELIAL CELL URINE 0-3 /hpf (0-5); WBC, URINE 0-2 /hpf (0-5)
[2017-11-12 15:09] LABS: CHLORIDE 104 MEQ/L (98-107); SODIUM (NA) 138 MEQ/L (136-145)
[2017-11-12 15:12] LABS: CALCIUM 9.5 MG/DL (8.5-10.1)
[2017-11-12 15:13] LABS: ALBUMIN 4.5 GM/DL (3.4-5.0); BICARBONATE 21.7 MEQ/L (21.0-32.0); BLOOD UREA NITROGEN 12 MG/DL (7-18); GLUCOSE,RANDOM 101 MG/DL (74-106)
[2017-11-12] MEDS ORDERED: POTASSIUM CHLORIDE 25 MEQ EFFERVESCENT TAB PO ONE (15:15)
[2017-11-12 15:16] LABS: ALT (GPT) 17 U/L (10-53); AST (GOT) 24 U/L (15-37); CREATININE 0.93 MG/DL (0.50-1.00); GLOMERULAR FILTRATION RATE 88 ML/MIN (>89)
[2017-11-12 15:18] LABS: TOTAL BILIRUBIN ADULT 0.4 MG/DL (0.2-1.0); TOTAL PROTEIN 9.2 GM/DL (6.4-8.2)
[2017-11-12 15:19] LABS: ALKALINE PHOSPHATASE 90 U/L (45-117)
[2017-11-12] MEDS ORDERED: ALPRAZolam 0.5 MG TAB PO ONE (15:30)
[2017-11-12] MEDS ORDERED: ZOFR4TAB3 SL (15:36)
== END 2017-11-12 16:19 | disposition home or self-care (01) ==
LOC: PHED 14:12
DX: R11.2 Nausea with vomiting, unspecified (principal); R19.7 Diarrhea, unspecified; F41.0 Panic disorder [episodic paroxysmal anxiety]; J45.909 Unspecified asthma, uncomplicated; Z87.891 Personal history of nicotine dependence
CPT/HCPCS: 80053; 81001; 83690; 84703; 85025; 96374; 99284; J2405; J7030